=== PATIENT | male | born 1975 | race Caucasian/White ===

== ENCOUNTER 2024-06-07 12:14 | Emergency (ER) | payer OTHER, SELFPAY ==
[2024-06-07 12:29] VITALS: BP 149/92; PULSE 84; RESP 18; TEMP 36.4; O2SAT 98
--- NOTE | 2024-06-08 15:11 | ED_ITS ---
HPI - Ear Problem General Chief complaint: Ear Stated complaint: fragment lodged in ear Time Seen by Provider: 06/07/24 12:35 Source: patient Mode of arrival: ambulatory Limitations: no limitations History of Present Illness HPI Narrative: 48-year-old male presents with piece of hearing aid stuck in left ear canal. All systems reviewed and negative except as noted above. Related Data Home Medications ?Medication ?Instructions ?Recorded ?Confirmed ?Last Taken ?Type amlodipine 5 mg tablet mg 06/07/24 Unknown History atorvastatin 10 mg tablet mg 06/07/24 Unknown History Allergies Allergy/AdvReac Type Severity Reaction Status Date / Time Penicillins Allergy Mild Other Verified 06/07/24 12:31 Review of Systems Review of Systems: CONSTITUTIONAL: Denies fever, chills, or sweats. EYES: Denies visual changes, redness, or discharge. ENT: Denies rhinorrhea, congestion, sore throat, or otalgia. Reports piece of hearing aid stuck in left ear canal. CARDIOVASCULAR: Denies chest pain, palpitations, or edema. RESPIRATORY: Denies cough or dyspnea. GASTROINTESTINAL: Denies abdominal pain, nausea, vomiting, or diarrhea. GENITOURINARY: Denies dysuria or hematuria. SKIN: Denies rash or itching. MUSCULOSKELETAL: Denies back pain, joint pain, or myalgia. NEUROLOGIC: Denies headache, numbness, or weakness. PSYCHIATRIC: Denies anxiety or depression. All other systems reviewed are negative, except as documented in HPI. PMFSH Comments At time of signature, agree with nursing past medical, surgical, social and family history. There is no relevant family history pertinent to the presenting complaint. Exam Narrative: GENERAL: This is a well-nourished, well-developed patient, in no apparent distress. HEAD: normocephalic, atraumatic. EYES: PERRL. Sclera clear/white. Vision is grossly intact. EARS: External ears normal, Right ear canal normal. Clear plastic piece from hearing aid stuck in left ear canal. After removed TMs normal without perforation. Hearing grossly intact. NOSE: External nose normal THROAT: Mucous membranes moist, posterior pharynx clear. NECK: Neck supple, non-tender without lymphadenopathy, masses or thyromegaly. CARDIOVASCULAR: Regular rate and rhythm without murmurs, gallops, or rubs. RESPIRATORY: Clear to auscultation. Breath sounds equal bilaterally. No wheezes, rales, or rhonchi. SKIN: warm, Dry, intact with no suspicious lesions or rash, good texture and turgor. NEURO: awake, alert, and oriented to person, place and time. There were no obvious focal neurologic abnormalities. EXTREMITIES: No joint tenderness, effusion, or edema noted. Course Course Level of Care: Express Care Visit Vital Signs Vital signs: Vital Signs Temperature 36.4 C 06/07/24 12:29 Pulse Rate 84 06/07/24 12:29 Respiratory Rate 18 06/07/24 12:29 Blood Pressure 149/92 H 06/07/24 12:29 Pulse Oximetry 98 06/07/24 12:29 Oxygen Delivery Room Air 06/07/24 12:29 Temperature 36.4 C 06/07/24 12:29 Pulse Rate 84 06/07/24 12:29 Respiratory Rate 18 06/07/24 12:29 Blood Pressure 149/92 H 06/07/24 12:29 Pulse Oximetry 98 06/07/24 12:29 Oxygen Delivery Room Air 06/07/24 12:29 reviewed Procedures FB Removal Ear Foreign Body #1: Foreign Body Removal Date: 06/07/24 Foreign Body Removal Time: 12:45 Location: ear canal (L) Foreign Body Suspected: other plastic ( hearing aid piece) TM intact pre-procedure: yes Foreign Body Removed: yes Foreign Body Removal Technique: other ( alligator clamp) Tympanic Membrane Intact Post Procedure: Yes Patient Tolerated Procedure: well Complications: none Medical Decision Making MDM Narrative Medical decision making narrative: piece of hearing aid removed from left ear canal using alligator clamp. No other complaints today. Patient is aware of diagnosis, understands and agrees to treatment plan. Anticipatory guidance given. Patient agrees to follow-up as directed and is aware of reasons to seek care at the emergency department. Portions of this record may have been created with voice recognition software Vital Signs Vital Signs: Vital Signs Temperature 36.4 C 06/07/24 12:29 Pulse Rate 84 06/07/24 12:29 Respiratory Rate 18 06/07/24 12:29 Blood Pressure 149/92 H 06/07/24 12:29 Pulse Oximetry 98 06/07/24 12:29 Oxygen Delivery Room Air 06/07/24 12:29 Temperature 36.4 C 06/07/24 12:29 Pulse Rate 84 06/07/24 12:29 Respiratory Rate 18 06/07/24 12:29 Blood Pressure 149/92 H 06/07/24 12:29 Pulse Oximetry 98 06/07/24 12:29 Oxygen Delivery Room Air 06/07/24 12:29 Discharge Plan Discharge Clinical Impression: Acute foreign body of left ear canal Patient Disposition: Home, Self-Care Condition: Stable Instructions: Ear Foreign Body (ED) Additional Instructions: A plastic piece from your hearing aid was removed from your left ear canal today. Patient Language: Cypriot Prescriptions: No Action atorvastatin 10 mg tablet amlodipine 5 mg tablet Follow-up/Referrals: Vero,MD Argentina [Primary Care Provider] - Time of Disposition: 12:41
--- OUTSIDE RECORDS SUMMARY | 2024-06-09 00:20 | XMS_ITS | Clinical Summary ---
Author Organization [facility] Address [address] [facility] [address] [facility] [address] [place] [phone] Phone Care Team Providers Care Manager Cafe Name Role Phone [place] Pham MD Primary Care Provi roscoe Allergies Active Allergy Reactions Criticality Noted Date Comments Penicillins Unknown 07/20/2013 Medications atorvastatin (LIPITOR) 10 mg tablet TAKE 1 TABLET(10 MG) BY MOUTH DAILY 100 tablet 03/03/2024 Active cefdinir (OMNICEF) 300 mg capsule Take 1 capsule (300 mg total) by mouth 2 (two) times a day 14 capsule 03/14/2024 Active amLODIPine (NORVASC) 5 mg tablet TAKE 1 TABLET(5 MG) BY MOUTH DAILY 100 tablet 1 04/22/2024 Active Active Problems Problem Noted Date Diagnosed Date Primary hyperaldosteronism 04/06/2023 History of adrenal adenoma 03/30/2023 Assessment & Plan (03/30/2023 9:26 AM TECHNOLOGY SPECIALIST): Chronic, status post surgery Will follow-up on CT scan to evaluate for any pathology Update me with any changes Hypertension, essential 03/30/2023 Assessment & Plan (03/30/2023 9:26 AM TECHNOLOGY SPECIALIST): Chronic, stable Continue amlodipine 5 mg Bilateral hearing loss 03/30/2023 Assessment & Plan (03/30/2023 9:25 AM TECHNOLOGY SPECIALIST): Chronic, stable Referral to audiology placed Continue to wear hearing aids SKY (obstructive sleep apnea) 03/30/2023 Assessment & Plan (04/27/2023 10:56 AM TECHNOLOGY SPECIALIST): The patient was diagnosed with obstructive sleep apnea about 20 years ago. He is currently using a travel CPAP unit and he is not aware with the pressure setting is. I have recommended a new nocturnal polysomnogram with a split night protocol if necessary and no MSLT in order to order a new CPAP unit for him. He will follow up here in 3 months. Class 1 obesity due to exces s calories with serious comorbidity and body mass index (BMI) of 33.0 to 33.9 in adult 03/30/2023 Assessment & Plan (03/14/2024 11:21 AM CDT): BMI Follow-up includes: education provided. Assessment & Plan (06/28/2023 1:06 PM TECHNOLOGY SPECIALIST): BMI Follow-up includes: exercise counseling. Assessment & Plan (06/01/2023 10:11 AM TECHNOLOGY SPECIALIST): Chronic, stable BMI Follow-up includes: nutrition counseling. Assessment & Plan (03/30/2023 9:27 AM TECHNOLOGY SPECIALIST): Chronic, stable Reviewed the Mediterranean and dash diet BMI Follow-up includes: nutrition counseling. Encounters Date Type Department Care Team Description 04/04/2024 12:30 PM TECHNOLOGY SPECIALIST Office Visit [facility] Medicine [address] [place] [phone] [address] Duran [place] Skin lesion of back (Primary Dx) 04/04/2024 Letter (Out) [address] [phone] 03/14/2024 11:00 AM CDT Office Visit [facility] Medicine [address] [place] [phone] [address] Duran [place] Tonsillar exudate (Primary Dx); Pharyngitis, unspecified etiology; Fever, unspecified fever cause; Class 1 obesity due to excess calories with serious comorbidity and body mass index (BMI) of 33.0 to 33.9 in adult 03/14/2024 Orders Only [facility] [address] [phone] Court Duran [place] 03/14/2024 Telephone [facility] [address] [phone] Court Duran [place] Medical Question/Miscellaneo us from Last 3 Months Immunizations Name Administration Dates Next Due Influenza, Unspecified 06/01/2023(Deferr ed: Patient Refused),02/14/2023(Deferred: Patient Refused),02/14/2022 Tdap 08/02/2018,05/17/2003 Surgical History Surgery Date Site/Laterality Comments VASECTOMY 2003 ADRENALECTOMY Left TYMPANOPLASTY Medical History Medical History Date Comments Hypertension Family History Medical History Relation Name Comments Cancer Father Melvin Hearing loss Father Melvin Hypertension Father Melvin Kidney cancer Father Melvin No Known Problems Maternal Grandfather Diabetes Maternal Grandmother Yumiko Bradycardia Mother Hypotension Mother Bladder Cancer Paternal Grandfather Stephen Cancer Paternal Grandfather Stephen Colon cancer Paternal Grandfather Stephen Hypertension Paternal Grandfather Stephen Hypertension Paternal Grandmother Relation Name Status Comments Father Melvin Alive Maternal Grandfather Maternal Grandmother Yumiko Mother Alive Paternal Grandfather Stephen Paternal Grandmother Social History Tobacco Use Types Packs/Day Years Used Date Smoking Tobacco: Former Cigarettes Pipe Cigars Smokeless Tobacco: Never Tobacco Cessation:Counseling Given: Not Answered AUDIT-C Answer Date Recorded Q1: How often do you have a drink containing alc ohol? 2-4 times a month 04/04/2024 Q2: How many drinks containi ng alcohol do you have on a typical day when you are drinking? 1 or 2 04/04/2024 Q3: How often do you have si x or more drinks on one occasion? Never 04/04/2024 PHQ-2 Answer Date Recorded PHQ-2 Total Score (If total score is 3 or more points, staff should administer the PHQ-9) 0 04/04/2024 Sex and Gender Information Value Date Recorded Sex Assigned at Not on file Legal Sex Male 10:03 AM CDT Gender Identity Male 03/23/2023 8:33 AM TECHNOLOGY SPECIALIST Sexual Orientation Straight 03/23/2023 8: 33 AM TECHNOLOGY SPECIALIST Obstetrics History Last Filed Vital Signs Vital Sign Reading Time Taken Comments Blood Pressure 118/70 04/04/2024 12:19 PM TECHNOLOGY SPECIALIST Pulse 72 04/04/2024 12:19 PM TECHNOLOGY SPECIALIST Temperature 36.7 ??C (98.1 ??F) 04/04/2024 12:[address] Respiratory Rate 16 04/04/2024 12:19 PM TECHNOLOGY SPECIALIST Oxygen Saturation 98% 04/04/2024 12:19 PM TECHNOLOGY SPECIALIST Inhaled Oxygen Concentration - - Weight 108.9 kg (240 lb) 04/04/2024 12:19 PM TECHNOLOGY SPECIALIST Height 180.3 cm (5' 11 ) 04/04/2024 12:19 PM TECHNOLOGY SPECIALIST Body Mass Index 33.47 04/04/2024 12:19 PM TECHNOLOGY SPECIALIST Plan of Treatment Health Maintenance Due Date Last Done Comments Colon Cancer Screening-Colonoscopy 1973 Hepatitis C Screening 1973 Prostate Cancer Screening-PSA 1973 Hepatitis B Screening 09/15/1991 Regular Well Visit/Exam 18-64 09/15/1991 Zoster Vaccine (1 of 2) 09/15/2023 Influenza Vaccine (#1) 2024 02/14/2022 Depression Screening 04/04/2025 04/04/2024, 03/14/2024, 06/09/2023, Additional history exists DTaP/Tdap/Td Vaccine (3 - Td or Tdap) 08/02/2028 08/02/2018, 05/17/2003 Pneumococcal vaccine <65 Aged Out No longer eligible based on patient's age to complete this topic Procedures Procedure Name Priority Date/Time Associated Diagnosis Comments THROAT CULTURE Routine 03/14/2024 12:20 PM CDT Pharyngitis, unspecified etiology Fever, unspecified fever cause POC INFLUENZA A/B, COVID-19 ANTIGEN Routine 03/14/2024 11:07 AM CDT Fever, unspecified fever cause POCT RAPID STREP Routine 03/14/2024 11:0 6 AM CDT Fever, unspecified fever cause from Last 3 Months Results * Throat culture Throat (03/14/2024 12:20 PM CDT) Throat culture [facility] Comment: ??CULTURE, THROAT ?Micro Number: ?[id number] ??Test Status: ? Final ??Specimen Source: ?? Throat ??Specimen Quality: ??Adequate ??Result: ?Heavy growth of ? Beta-hemolytic Streptococcus, not group A,C or G ? Beta-hemolytic streptococci are predictably ? susceptible to Penicillin and other beta-lactams. ? Susceptibility testing not routinely performed. ? Please contact the laboratory within 3 days if ? susceptibility testing is desired. ??COMMENT: ? Normal oropharyngeal marilee also present. Throat 03/14/2024 12:2 0 PM CDT 03/15/2024 2:[address] MORE LAB MICROBIOLOGY - GENERA L ORDERABLES Final Result [facility] [address] [place] [address] * POC Influenza A/B, COVID-19 antigen (03/14/2024 11:07 AM CDT) Influenza A Ag, POC Negative Negative [facility] [place] Influenza B Ag, POC Negative Negative [facility] [place] COVID-19 Ag POC Presumptive Negative Presumptive Negative, Invalid [facility] Comment:[id number] exp 04/15/25 Nasal 03/14/2024 11:[address] MORE POINT OF CARE TEST ORDERA BLES Final Result [facility] [address] [address] * POCT rapid strep A (03/14/2024 11:06 AM CDT) Rapid Strep A, POC Negative Negative Comment:[id number] exp 05/17/26 Swab 03/14/2024 11:[address] MORE POINT OF CARE TEST ORDERA BLES Edited Result - Final from Last 3 Months Insurance [facility] Care Teams Manager Cafe Relationship Specialty Start Date End Date Argentina Pham MD [address] [place] [address] PCP - General Family Medicine 03/30/23
--- OUTSIDE RECORDS SUMMARY | 2024-06-09 00:20 | XMS_ITS | Clinical Summary ---
Author Organization [facility] Address [address] [place] [address]. [place] [address] [place] [address] Care Team Providers Care Ice Skating Teacher Name Role Phone Argentina Pham MD Primary Care Provider Social History Tobacco Use Types Packs/Day Years Used Date Smoking Tobacco: Never Assessed Sex and Gender Information Value Date Recorded Sex Assigned at Not on file Legal Sex Male 2:52 PM HOT BLASTER Gender Identity Not on file Sexual Orientation Not on file Plan of Treatment Health Maintenance Due Date Last Done Comments Colorectal Cancer Screening Colonoscopy (10 Years) 1973 Annual Physical 1976 Hepatitis C 09/15/1991 Hepatitis B Vaccines (1 of 3 - 19+ 3-dose series) 1992 Zoster Vaccines (1 of 2) 09/15/2023 COVID-19 Vaccine (2023-2 5 season) 2024 Influenza Adult (#1) 2024 02/14/2022 DTaP, Tdap and Td Vaccines ( 3 - Td or Tdap) 08/02/2028 08/02/2018, 05/17/2003 Meningococcal Vaccine Aged Out No alethea johny eligible based on patient's age to complete this topic Pneumococcal Vaccine: Pediatrics (0 to 5 Years) and At-Risk Patients (6 to 64 Years) Aged Out No longer eligible b ased on patient's age to complete this topic RSV Immunizations Under 20 Months Aged Out No longer eligible b ased on patient's age to complete this topic Insurance [employer] Care Teams Ice Skating Teacher Relationship Specialty Start Date End Date Argentina Pham MD [address] [facility] [address] [place] [address] PCP - General FAMILY PRACTICE 07/29/23
--- OUTSIDE RECORDS SUMMARY | 2024-06-09 00:20 | XMS_ITS | Referral Summary ---
Author Organization [facility] Address [address] [place] [address] [place] [address] Phone Care Team Providers Care Disability Services Coordinator Name Role Phone Argentina Pham MD Primary Care Provi [facility] Encounters Date Type Department Care Team Description 04/04/2024 Letter (Out) [address] [phone] 04/04/2024 12:30 PM INFECTION CONTROL NURSE Office Visit [address] [phone] Court Duran [place] Skin lesion of back (Primary Dx) 03/14/2024 Orders Only [address] [phone] Court Duran [place] 03/14/[address] [phone] Court Duran [place] Medical Question/Miscellaneo us 03/14/2024 11:00 AM CDT Office Visit [address] [phone] Court Duran [place] Tonsillar exudate (Primary Dx); Pharyngitis, unspecified etiology; Fever, unspecified fever cause; Class 1 obesity due to excess calories with serious comorbidity and body mass index (BMI) of 33.0 to 33.9 in adult from Last 3 Months Allergies Active Allergy Reactions Criticality Noted Date [...] 03/30/2023 Assessment & Plan (03/30/2023 9:26 AM INFECTION CONTROL NURSE): Chronic, status post surgery Will follow-up on CT scan to evaluate for any pathology Update me with any changes Hypertension, essential 03/30/2023 Assessment & Plan (03/30/2023 9:26 AM INFECTION CONTROL NURSE): Chronic, stable Continue amlodipine 5 mg Bilateral hearing loss 03/30/2023 Assessment & Plan (03/30/2023 9:25 AM INFECTION CONTROL NURSE): Chronic, stable Referral to audiology placed Continue to wear hearing aids SKY (obstructive sleep apnea) 03/30/2023 Assessment & Plan (04/27/2023 10:56 AM INFECTION CONTROL NURSE): The patient was diagnosed with obstructive sleep [...] provided. Assessment & Plan (06/28/2023 1:06 PM INFECTION CONTROL NURSE): BMI Follow-up includes: exercise counseling. Assessment & Plan (06/01/2023 10:11 AM INFECTION CONTROL NURSE): Chronic, stable BMI Follow-up includes: nutrition counseling. Assessment & Plan (03/30/2023 9:27 AM INFECTION CONTROL NURSE): Chronic, stable Reviewed the Mediterranean and dash diet BMI Follow-up includes: nutrition counseling. Immunizations Name Administration Dates Next Due Influenza, Unspecified 06/01/2023(Deferr ed: Patient Refused),02/14/2023(Deferred: Patient Refused),02/14/2022 Tdap 08/02/2018,05/17/2003 Social History Tobacco Use Types Packs/Day Years [...] CDT Gender Identity Male 03/23/2023 8:33 AM INFECTION CONTROL NURSE Sexual Orientation Straight 03/23/2023 8: 33 AM INFECTION CONTROL NURSE Last Filed Vital Signs Vital Sign Reading Time Taken Comments Blood Pressure 118/70 04/04/2024 12:19 PM INFECTION CONTROL NURSE Pulse 72 04/04/2024 12:19 PM INFECTION CONTROL NURSE Temperature 36.7 ??C (98.1 ??F) 04/04/2024 12:[address] Respiratory Rate 16 04/04/2024 12:19 PM INFECTION CONTROL NURSE Oxygen Saturation 98% 04/04/2024 12:19 PM INFECTION CONTROL NURSE Inhaled Oxygen Concentration - - Weight 108.9 kg (240 lb) 04/04/2024 12:19 PM INFECTION CONTROL NURSE Height 180.3 cm (5' 11 ) 04/04/2024 12:19 PM INFECTION CONTROL NURSE Body Mass Index 33.47 04/04/2024 12:19 PM INFECTION CONTROL NURSE Plan of Treatment Not on file Procedures Procedure Name Priority Date/Time Associated Diagnosis Comments THROAT CULTURE Routine 03/14/2024 12:20 PM CDT Pharyngitis, unspecified etiology Fever, unspecified fever cause POC INFLUENZA A/B, COVID-19 ANTIGEN Routine 03/14/2024 11:07 AM CDT Fever, unspecified fever cause POCT RAPID STREP Routine 03/14/2024 11:0 6 AM CDT Fever, unspecified fever cause from Last 3 Months Results * Throat culture Throat (03/14/2024 12:20 PM CDT) Pathologist [facility] Throat culture [facility] Comment: ??CULTURE, THROAT ?Micro Number: ?[id number] ??Test Status: ? Final ??Specimen Source: ?? [...] MICROBIOLOGY - GENERA L ORDERABLES Final Result Performing Organization Address City/[facility]/ZIP Co de Phone Number [facility] [address] [place] [address] * POC Influenza A/B, COVID-19 antigen (03/14/2024 11:07 AM CDT) Influenza A Ag, POC Negative Negative [facility] Influenza B Ag, POC Negative Negative [facility] COVID-19 Ag POC Presumptive Negative Presumptive Negative, Invalid [facility] Comment:[id number] exp 04/15/25 Nasal 03/14/2024 11:[address] MORE POINT OF CARE TEST ORDERA BLES Final Result Performing Organization Address [facility] Co de Phone Number [facility] [address] [address] * POCT rapid strep A (03/14/2024 11:06 AM CDT) Rapid Strep A, POC Negative Negative Comment:[id number] exp 05/17/26 Swab 03/14/2024 11:[address] MORE POINT OF CARE TEST ORDERA BLES Edited Result - Final from Last 3 Months Insurance [facility] Care Teams Disability Services Coordinator Relationship Specialty Start Date End Date Argentina Pham MD [address] [place] [address] PCP - General Family Medicine 03/30/23
== END 2024-06-07 12:43 | disposition home or self-care (01) ==
PROVIDERS: Emergency Provider Nurse Practitioner Family; PCP Family Medicine
DX: T16.2XXA Foreign body in left ear, initial encounter (principal); W44.G1XA Audio device entering into or through a natural orifice, initial encounter; E78.00 Pure hypercholesterolemia, unspecified; I10 Essential (primary) hypertension; Z98.52 Vasectomy status
CPT/HCPCS: 69200; 99212; G0463